=== PATIENT | male | born 1995 | race Caucasian/White ===

== ENCOUNTER 2021-05-13 20:33 | Emergency (ER) | payer OTHER ==
[~2021-05-13] VITALS: Ht 165.1 cm; Wt 63.5 kg
--- NOTE | 2021-05-13 20:57 | NUR ---
PT BIBRA 84 AND [employer] C/O BIZARRE BEHAVIOR AFTER PT WAS PLACED IN CUSTODY. PLACED IN BED 15 ON MONITOR AND PULSE OX.
[2021-05-13] MEDS ORDERED: KETOROLAC TROMETHAMINE INJ 30 MG/ML VIAL ONE (21:27)
[2021-05-13] MEDS ORDERED: LORAZEPAM INJ 2 MG/ML VIAL ONE (21:27)
[2021-05-13] MEDS ORDERED: LORAZEPAM INJ 2 MG/ML VIAL IM ONE (21:30)
[2021-05-13] MEDS ORDERED: KETOROLAC TROMETHAMINE INJ 60 MG/2 ML VIAL IM ONE (21:30)
--- NOTE | 2021-05-13 22:43 | NUR ---
Patient discharged in stable condition. Written and verbal after care instructions given. Patient verbalizes understanding of instruction. Pt left with [employer].
[2021-05-14 00:41] VITALS: BP 138/75
== END 2021-05-14 00:42 ==
LOC: ER 20:35
DX: R46.1 Bizarre personal appearance (principal); R00.2 Palpitations; Z59.0 Homelessness
CPT/HCPCS: 93005; 96372 ×2; 99284; J1885; J2060